=== PATIENT | male | born 1970 | race Caucasian/White ===

== ENCOUNTER 2022-09-09 14:05 | Outpatient (CLI) | payer OTHER, SELFPAY ==
--- NOTE | 2022-09-09 | CT_ITS ---
WS: [id number] CT NECK TECHNIQUE: Contrast-enhanced CT of the neck with coronal and sagittal reformatted images. CLINICAL INFORMATION: MASS Of LT SUBMANDIBULAR REGION COMPARISON: None. DLP: 305.[address] scans at [facility] use at least one of these dose optimization techniques: automated e xposure control; mA and/or kV adjustment per patient size (includes targeted exams where dose is matc hed to clinical indication); or iterative reconstruction. FINDINGS:Parotid glands are normal. Normal submandibular glands. Prominent retromandibular vein cross es the LEFT submandibular gland. Tiny lymph node along the anterior LEFT submandibular gland measurin g 5 mm. No evidence of pathologic mass or lesion in the submandibular space. Normal parapharyngeal fa t. Normal posterior nasopharynx. Normal vallecula and piriform sinuses. Normal glottis. No evidence of s upraglottic or glottic mass. Normal thyroid gland. Minimal mucosal thickening in the ethmoid air cells. Small amount of fluid in the ethmoid air cells. Chronic opacification of the RIGHT mastoid air cells with sclerosis. Slight soft tissue thickening in the RIGHT middle ear. Prior postoperative changes LEFT canal wall up mastoidectomy with opacificatio n of the LEFT middle ear. Opacification of the residual LEFT mastoid air cells. Findings are similar in appearance compared to [address] Normal thyroid gland. Lung apices are well aerated. Straightening of the normal cervical lordosis wit h slight reversal. Disc space narrowing worse at C5-C6. No cervical lymphadenopathy. CT/CT neck w con* [id number] IMPRESSION: 1. Submandibular glands are normal in appearance. Prominent tortuous retromand ibular vein overlying the LEFT submandibular gland may correspond to the palpab le abnormality. Very tiny lymph node along the anterior LEFT sublingual gland m easuring 5 mm. 2. Parotid glands are normal. 3. Normal posterior nasopharynx and parapharyngeal fat. 4. No evidence of supraglottic or glottic mass. Subglottic airway is normal. 5. Mild mucosal thickening in the ethmoid air cells. 6. Evidence of chronic mastoiditis with sclerosis similar in appearance to 200 6. 7. Prior postoperative changes LEFT canal wall up mastoidectomy with opacifica tion LEFT middle ear also similar in appearance compared to 2006
[2022-09-09] MEDS: iohexol 350 mg/mL 100 mL Btl IV (14:14)
== END 2022-09-09 14:06 | disposition home or self-care (01) ==
LOC: RAD 14:06
PROVIDERS: PCP Family Medicine; Visit Provider Family Medicine
DX: R22.0 Localized swelling, mass and lump, head (principal); K11.1 Hypertrophy of salivary gland; J34.89 Other specified disorders of nose and nasal sinuses
CPT/HCPCS: 70491

== ENCOUNTER 2022-09-21 09:52 | Outpatient (CLI) | payer OTHER, SELFPAY | END 2022-09-21 09:53 | disposition home or self-care (01) | PROVIDERS: PCP Family Medicine; Visit Provider Family Medicine | DX: R06.00 Dyspnea, unspecified (principal) | CPT/HCPCS: 94060; 94726; 94729; J7611 ==

== ENCOUNTER 2025-07-16 12:44 | Outpatient (CLI) | payer BC, SELFPAY ==
[2025-07-16 13:05] VITALS: PULSE 89; RESP 18; O2SAT 98
== END 2025-07-16 12:45 | disposition home or self-care (01) ==
LOC: RT 12:45
PROVIDERS: PCP Family Medicine; Visit Provider Family Medicine
DX: R06.00 Dyspnea, unspecified (principal)
CPT/HCPCS: 94060; 94726; 94729; J7613

== ENCOUNTER 2025-08-11 13:22 | Outpatient (CLI) | payer BC, SELFPAY ==
--- NOTE | 2025-08-11 13:32 | CT_ITS ---
WS: [id number] CT CHEST ANGIOGRAPHY WITH REFORMATS HISTORY: ELEVATED D-DIMER TECHNIQUE: Contiguous axial images are obtained through the chest during arterial injection of intravenous contrast. Images are reconstructed to evaluate the pulmonary arteries. MIP imaging also reviewed. All CT scans at [facility] use at least one of these dose optimization techniques: automated exposure control; mA and/or kV adjustment per patient size (includes targeted exams where dose is matched to clinical indication); or iterative reconstruction. CONTRAST: Omnipaque 350; 100 mL IV. DLP: 398.94 mGy.cm COMPARISON: None available. Good opacification of the pulmonary arteries. No filling defects or pulmonary embolism. Normal size pulmonary artery. No RIGHT heart strain. Normal size thoracic aorta with minimal atherosclerotic plaque. LEFT heart is slightly enlarged. No pericardial or pleural effusions. No mediastinal or hilar vamsi opathy. Decreased lung volumes. There is very slight diffuse interstitial thickening with no pneumonia or consolidation. Mild thickening along the fissures. Suspect component of mild pneumonitis versus edema. No pericardial or pleural effusions. No destructive bone lesions. Irregular low-attenuation mass in the LEFT lobe of the liver measures 3.3 x 2.6 cm. Hounsfield units are low suggesting this is probably a cyst. Additional scattered hypodensities within the liver. No adrenal mass. CT/CT angio chest PE protcl [id number] IMPRESSION: 1. No pulmonary embolism. 2. No RIGHT heart strain. 3. Mild LEFT heart enlargement. 4. Diffuse interstitial thickening and thickening along the pleural fissures. Suspect component of mild interstitial edema or pneumonitis. 5. No pneumonia. 6. Numerous cysts hepatic lesions are low-attenuation. These are probably cyst s. Consider follow-up RIGHT upper quadrant ultrasound.
[2025-08-11] MEDS: iohexol 350 mg/mL 500 mL Btl (per mL) IV (13:59)
== END 2025-08-11 13:23 | disposition home or self-care (01) ==
LOC: RAD 13:24
PROVIDERS: PCP Family Medicine; Visit Provider Family Medicine
DX: R79.89 Other specified abnormal findings of blood chemistry (principal); I51.9 Heart disease, unspecified; R93.2 Abnormal findings on diagnostic imaging of liver and biliary tract; J84.9 Interstitial pulmonary disease, unspecified
CPT/HCPCS: 71275